=== PATIENT | female | born 1985 | race Hispanic/Latino ===

== ENCOUNTER 2019-08-01 18:01 | Emergency (ER) | payer MEDICAID ==
[2019-08-01 18:41] LABS: APPEARANCE,URINE Cloudy (CLEAR); BILIRUBIN,URINE Negative (NEGATIVE); COLOR,URINE Yellow (YELLOW); GLUCOSE, URINE (UA) Negative (NEGATIVE); KETONES,URINE Negative (NEGATIVE); LEUKOCYTE ESTERASE ,URINE Moderate (NEGATIVE); NITRATE,URINE Negative (NEGATIVE); OCCULT BLOOD,URINE Large (NEGATIVE); PH,URINE 8.5 (5.0-8.0); PROTEIN,URINE Trace mg/dL (NEGATIVE)
[2019-08-01 19:00] LABS: HCG,QUAL RESULT NEGATIVE (NEGATIVE)
[2019-08-01 19:35] LABS: AMORPHOUS SEDIMENT,UR Many /LPF (None Seen); BACTERIA,URINE Few /HPF (None Seen); MUCUS,URINE Moderate LPF (None Seen); SQUAMOUS EPITHELIAL CELL,UR Moderate /HPF (0-2)
[2019-08-01] MEDS ORDERED: CEFTRIAXONE SODIUM 500 MG VIAL ONE (20:36)
[2019-08-01] MEDS ORDERED: LIDOCAINE HCL-MPF 1% 2ML VIAL ONE (20:36)
[2019-08-01] MEDS ORDERED: AZITHROMYCIN 250 MG TABLET PO ONE (20:37)
== END 2019-08-01 21:20 | disposition home or self-care (01) ==
LOC: EDH 18:01
DX: N39.0 Urinary tract infection, site not specified (principal); Z98.890 Other specified postprocedural states
CPT/HCPCS: 76856; 81001; 81025; 87210; 87486; 87797; 96372; 99285; J0696; J3490

== ENCOUNTER 2022-08-30 15:06 | Emergency (ER) | payer MEDICAID ==
[~2022-08-30] VITALS: Ht 167.6 cm; Wt 59.0 kg
[2022-08-30 15:09] VITALS: BP 135/76
[2022-08-30] MEDS ORDERED: ACET-2079 PO (16:19)
[2022-08-30] MEDS ORDERED: ACETAMINOPHEN WITH CODEINE 1 TAB TAB PO ONE (16:30)
== END 2022-08-30 17:05 | disposition home or self-care (01) ==
LOC: EDH 15:06
DX: S42.251A Displaced fracture of greater tuberosity of right humerus, initial encounter for closed fracture (principal); Z90.710 Acquired absence of both cervix and uterus; Z98.890 Other specified postprocedural states; X58.XXXA Exposure to other specified factors, initial encounter; Y93.89 Activity, other specified; Y92.89 Other specified places as the place of occurrence of the external cause; Y99.8 Other external cause status
CPT/HCPCS: 29105; 73060; 99282

== ENCOUNTER 2022-10-31 14:39 | Emergency (ER) | payer MEDICAID ==
[~2022-10-31] VITALS: Ht 167.6 cm; Wt 59.0 kg
[~2022-10-31 14:39] MED LIST: ACET-2079 PO
[2022-10-31] MEDS ORDERED: LACTATED RINGERS 1000ML 1,000 ML IV ONE (15:00)
[2022-10-31 15:25] LABS: BASOPHILS % (AUTO) 0.6 % (0.0-5.0); EOSINOPHILS % (AUTO) 0.9 % (0.0-8.0); LYMPHOCYTES % (AUTO) 17.5 % (21.0-51.0); MEAN CORPUSCULAR HEMOGLOBIN 29.7 pg (27.0-33.0); MEAN CORPUSCULAR HGB CONC 33.8 g/dL (32.0-36.0); MEAN CORPUSCULAR VOLUME 87.9 fL (79-99); MONOCYTES % (AUTO) 10.8 % (3.0-13.0); NEUTROPHILS % (AUTO) 69.9 % (40.0-77.0); PLATELET COUNT (AUTO) 310 K/uL (130-400); RED BLOOD CELL COUNT(AUTO) 4.55 MIL/uL (4.00-5.50); RED CELL DISTRIBUTION WIDTH 13.5 % (11.0-15.5); WHITE BLOOD COUNT (AUTO) 6.8 K/uL (4.8-10.8)
[2022-10-31 15:36] LABS: CARBON DIOXIDE 26 mmol/L (21-32); CHLORIDE 102 mmol/L (101-111); CREATININE 0.8 mg/dL (0.5-1.5); GLOMERULAR FILTR. RATE CALC 96 mL/min (>90); GLUCOSE,RANDOM 94 mg/dL (70-105); POTASSIUM 3.4 mmol/L (3.5-5.1); SODIUM SERUM 136 mmol/L (136-145); UREA NITROGEN, BLOOD 19 mg/dL (7-18)
[2022-10-31 15:41] LABS: ALANINE AMINOTRANSFERASE 20 U/L (12-78); ALBUMIN 3.9 g/dL (3.5-5.0); ASPARTATE AMINOTRANSFERASE 12 U/L (10-37); CREATINE KINASE, TOTAL 63 U/L (21-232); PHENYTOIN (DILANTIN) < 0.5 mcg/mL (10.0-20.0); TOTAL PROTEIN, SERUM 7.1 g/dL (6.0-8.3); VALPROIC ACID < 3 mcg/mL (50-100)
[2022-10-31 15:54] VITALS: BP 125/105
[2022-10-31] MEDS ORDERED: LEVETIRACETAM 500 MG/5 ML SD VIAL IV SCH (16:30)
[2022-10-31 16:40] LABS: AMPHET/METH SCREEN,URINE NEGATIVE (NEGATIVE); BARBITURATE SCREEN, URINE NEGATIVE (NEGATIVE); BENZODIAZEPINES SCREEN,URINE NEGATIVE (NEGATIVE); CANNABINOID SCREEN,URINE POSITIVE (NEGATIVE); COCAINE SCREEN,URINE POSITIVE (NEGATIVE); OPIATE SCREEN,URINE NEGATIVE (NEGATIVE); PHENCYCLIDINE SCREEN,URINE NEGATIVE (NEGATIVE)
[2022-10-31] MEDS ORDERED: POTASSIUM BICARB/CIT AC 25 MEQ TABLET.EFF PO STA (17:04)
== END 2022-10-31 18:00 | disposition home or self-care (01) ==
LOC: EDH 14:39
DX: R56.9 Unspecified convulsions (principal); E87.6 Hypokalemia; F19.10 Other psychoactive substance abuse, uncomplicated
CPT/HCPCS: 99284; 96374; 96361; 80164; 82550; 80185; 80053; 80305; 85025; 36415; J7120; J1953

== ENCOUNTER 2023-05-26 20:12 | Emergency (ER) | payer MEDICAID ==
[~2023-05-26] VITALS: Ht 167.6 cm; Wt 57.6 kg
[2023-05-26 20:27] VITALS: BP 111/74; PULSE 78; RESP 18
== END 2023-05-26 21:04 | disposition home or self-care (01) ==
LOC: EDH 20:12
DX: I80.8 Phlebitis and thrombophlebitis of other sites (principal); I73.00 Raynaud's syndrome without gangrene; Z90.710 Acquired absence of both cervix and uterus; Z98.890 Other specified postprocedural states
CPT/HCPCS: 99282

== ENCOUNTER → 2023-12-16 | Outpatient (CLI) | payer MEDICAID | END | disposition home or self-care (01) | LOC: RAH 11:43 | PROVIDERS: ATTEND Family Medicine | DX: I34.0 Nonrheumatic mitral (valve) insufficiency (principal); R07.2 Precordial pain | CPT/HCPCS: 93306 ==

== ENCOUNTER 2024-09-07 21:26 | Emergency (ER) | payer MEDICAID ==
[~2024-09-07] VITALS: Ht 167.6 cm; Wt 89.8 kg
--- NOTE | 2024-09-07 21:42 | ERN ---
General Chief Complaint: Shoulder Injury/Pain Stated Complaint: RIGHT SIDE SHOULDER/NECK PAIN Time Seen by MD: 21:26 Source: patient History of Present Illness Initial Comments Patient is a 39-year-old female coming in with complaint of right trapezius muscle pain. She states that the pain has been ongoing for several months but she notices more when she is sitting up bright working on her computer. She states the pain is quantified at 10/10 and sometimes he feels warmth in that same site. No trauma reported. Allergies: Coded Allergies: No Known Drug Allergies (Unverified Allergy, Unknown, 08/01/19) Home Meds Active Scripts Acetaminophen with Codeine (Acetaminophen-Cod #3 Tablet) 1 Each Tablet, 1 TAB PO Q4H PRN for PAIN LEVEL 6 TO 10 for 3 Days, #18 TAB Prov:JULISSA MOTRON 08/30/22 Past Medical History Past Medical History: No Pertinent History Past Surgical History: Hysterectomy Surgical History Other: TUBAL LIGATION; HERNIA REPAIR Social History Social History: Negative ROS Dictation CONSTITUTIONAL: No chills, no fever, no weakness, no diaphoresis, no malaise. HEAD/FACE: No signs of trauma. EENT: No eye pain, no blurred vision, no tearing, no double vision, no ear pain, no ear discharge, no nose pain, no nasal congestion, no throat pain, no throat swelling, no mouth pain. RESPIRATORY: No cough, no orthopnea, no SOB, no stridor, no wheezing. CARDIOVASCULAR: No chest pain, no edema, no palpitations, no syncope. GASTROINTESTINAL/ABDOMINAL: No abdominal pain, no constipation, no diarrhea, no nausea, no vomiting. GENITOURINARY: No abnormal discharge, no dysuria, no frequent urination, no hematuria. No complaints of pain in the genitals. MUSCULOSKELETAL: back pain, no gout, no joint pain, no joint swelling, muscle pain, no muscle stiffness, no neck pain. INTEGUMENTARY: No change in color, no change in hair/nails, no dryness, no lesion, no lumps, no rash. NEUROLOGICAL/PSYCH: No anxiety, not depressed, no emotional problem, no headache, no numbness, no pre-existing deficit, no history of seizures, no tremors, no weakness. HEMATOLOGIC/LYMPHATIC: Not anemic, no history of blood clots, no apparent bleeding, no bruising, glands not swollen. All Systems Negative, Except as Noted. Physical Exam Physical Exam Dictation VITAL SIGNS: Reviewed. GENERAL APPEARANCE: Alert, oriented x3, no acute distress, obese. HEAD AND FACE: Non-traumatic. EYES: PERRL, pink conjunctivas, eyelid no trauma, anterior chamber clear. EARS: Pinnas intact and no signs of trauma or erythema. Ear canals clear and no discharge. TMs no erythema. NOSE: No discharge, no bleeding. OROPHARYNX: Mouth normal, teeth no caries, tongue pink. Pharynx clear, no erythema. Tonsils no exudates, no abscesses noted. Mucous membrane moist. NECK: Supple, non-tender, no thyromegaly, no masses, no JVD, no bruits. BREAST: Deferred. CHEST: No tenderness, no crepitus, no paradoxical movement, no retractions. LUNGS: Clear, well-ventilated, symmetric, no rales, no wheezing, no rhonchi, no stridor, good breath sounds bilaterally. HEART: Regular rate, regular rhythm, no murmur, no gallops. VASCULAR: No peripheral edema. ABDOMEN: Soft, positive bowel sounds, nondistended, no guarding, nontender, no rebound, no masses no hepatomegaly, no splenomegaly, no Hernandez's sign, no hernias. RECTAL: Deferred. GENITAL: Deferred. NEUROLOGICAL: Normal speech, gross motor function intact, gross sensory function intact. MUSCULOSKELETAL: Neck nontender, full range of motion, right trapezius muscle tender, full range of motion. EXTREMITIES: Nontender, full range of motion. SKIN: Color pink, dry, no turgor, no rash, no lacerations, no abrasions, no contusions. LYMPHATICS: Deferred. Results Laboratory and Microbiology Lab and Micro Result Laboratory Tests Test 09/08/24 01:18 Urine HCG, Qualitative NEGATIVE (NEGATIVE) Labs Reviewed?: Yes EKG/XRAY/US/CT/MRI EKG Comment 09/07/2024 time 221:53 Ventricular rate [address] wave elevation or depression MDM MDM: Differential diagnosis: Subscapularis muscle strain, trapezius muscle strain, tension headache Patient is a 39-year-old female coming in to be evaluated for right trapezius muscle tenderness. On physical exam right subscapularis muscle tenderness on palpation. Right shoulder sling was placed. Patient will be discharged in stable condition with a diagnosis of right shoulder strain. I advised her appropriate follow up with PCP in 1-2 days. Also advised her sling usage until pain has resolved. ED Course Orders Procedure Category Date Status Time ,Urine Test LAB 09/07/24 Complete 21:34 Orphenadrine Citrate PHA 09/07/24 Complete (Norflex) 22:00 Ketorolac PHA 09/08/24 Complete Tromethamine 30mg/Ml 02:00 Sling PRACHI 09/08/24 In Process 01:59 Current Medications Medications (Trade) Dose Ordered Sig/Malika Route PRN Reason Start Time Stop Time Status Last Admin Dose Admin Ketorolac Tromethamine (toRADol) 30 mg ONCE ONCE IM 09/08/24 02:00 09/08/24 02:01 DC Orphenadrine Citrate (Norflex) 60 mg ONCE ONCE IM 09/07/24 22:00 09/07/24 22:01 DC 09/08/24 01:33 Vital Signs Date Time Temp Pulse Resp B/P (MAP) Pulse Ox O2 Delivery O2 Flow Rate FiO2 09/08/24 01:38 98.6 75 18 125/65 99 Room Air* 0 21 09/07/24 21:33 97.5 78 20 113/86 98 Room Air DX & DISP Disposition: Discharge Departure Impression: Primary Impression: Right subscapular pain Condition: Stable Scripts Diclofenac Sodium (Voltaren Arthritis Pain) 1 % Gel..gram. 4 GM TP BID for 7 Days, #1 TUBE Prov: ARMANDO JACINTO MD 09/08/24 Additional Instructions: FOLLOW-UP WITH PRIMARY CARE PROVIDER IN 1 TO 2 DAYS. TAKE MEDICATIONS DIRECTED HERE IN THE EMERGENCY ROOM. OKAY TO CONTINUE HOME MEDICATIONS UNLESS OTHERWISE DISCUSSED DURING YOUR VISIT IN THE EMERGENCY ROOM TODAY. RETURN TO YOUR NEAREST EMERGENCY ROOM IF SYMPTOMS WORSEN OR IF THERE IS NO IMPROVEMENT. CALL 911 IF YOU NEED IMMEDIATE ASSISTANCE. TAKE TYLENOL [id number] NEEDED AND IF NO CONTRAINDICATIONS ARE PRESENT. INCREASE ORAL HYDRATION. A WOUND CULTURE OR URINE CULTURE WAS ORDERED HERE IN THE EMERGENCY ROOM DEPARTMENT PLEASE FOLLOW-UP WITH PRIMARY CARE PROVIDER AND ADVISE THEM TO GET REPEAT PORTS FROM OUR FACILITY. IF YOU HAD ANY LINO WRAP/SPLINTS THAT WERE APPLIED HERE, PLEASE DO NOT REMOVE THEM UNTIL YOU SEE YOUR PRIMARY CARE OR SPECIALTY. Referrals: Referrals: HUDSON CHAPIN MD (PCP) Time of Disposition: 02:06 ARMANDO JACINTO MD Sep 07, 2024 21:42
[2024-09-08] MEDS: ORPHENADRINE 60MG/2ML IM ONE (01:33)
--- NOTE | 2024-09-08 01:33 | NUR ---
ASSUMED PT CARE
[2024-09-08 01:38] VITALS: BP 125/65; PULSE 75; RESP 18; TEMP 98.6; O2SAT 99
[2024-09-08] MEDS ORDERED: DICL20GE TP (02:06)
[2024-09-08] MEDS: ketOROlac 30MG VIAL (30MG/ML) IM ONE (02:10)
--- NOTE | 2024-09-08 09:42 | EKG ---
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
== END 2024-09-08 02:22 | disposition home or self-care (01) ==
LOC: EDH 21:26
DX: M25.511 Pain in right shoulder (principal); Z90.710 Acquired absence of both cervix and uterus; Z98.890 Other specified postprocedural states; X58.XXXA Exposure to other specified factors, initial encounter; Y93.89 Activity, other specified; Y92.89 Other specified places as the place of occurrence of the external cause; Y99.8 Other external cause status
CPT/HCPCS: 99284; 81025; 93005; 96372 ×2; J1885; J2360

== ENCOUNTER 2025-01-02 17:32 | Inpatient (IN) | payer SELFPAY ==
[~2025-01-02] VITALS: Ht 167.6 cm; Wt 93.0 kg
[~2025-01-02 17:32] MED LIST changes: -ACET-2079 PO; +ALBU2.5V2 IH; +ALBU2.5V2 NEB; +BENZ-226 PO; +CEFD300C3 PO; +DOXY100T2 PO; +GABA300C PO; +MIRT-93 PO; +NEBU-305 MC; +OSEL75 PO
[2025-01-02 17:58] VITALS: PULSE 98; RESP 22
[2025-01-02] MEDS: IpraTROPium 0.5 MG/2.5 ML INH IH ONE ×2 (17:58→18:00)
[2025-01-02] MEDS: SODIUM CHLORIDE 3% FOR INHALATION 4 ML/AMP VIAL.NEB IH ONE (17:58)
[2025-01-02 17:59] LABS: BASOPHILS # (AUTO) 0.04 K/uL (0.00-0.20); BASOPHILS % (AUTO) 0.6 % (0.0-5.0); EOSINOPHILS # (AUTO) 0.22 K/uL (0.00-0.70); EOSINOPHILS % (AUTO) 3.4 % (0.0-8.0); HEMATOCRIT 41.6 % (36-48); IMMATURE GRANULOCYTE ABSOLUTE 0.01 K/uL (0-1); LYMPHOCYTES # (AUTO) 1.6 K/uL (1.0-4.8); LYMPHOCYTES % (AUTO) 24.8 % (21.0-51.0); MEAN CORPUSCULAR HEMOGLOBIN 29.5 pg (27.0-33.0); MEAN CORPUSCULAR HGB CONC 34.1 g/dL (32.0-36.0); MEAN CORPUSCULAR VOLUME 86.3 fL (79-99); MONOCYTES % (AUTO) 15.1 % (3.0-13.0); NEUTROPHILS # (AUTO) 3.6 K/uL (1.8-7.7); NEUTROPHILS % (AUTO) 55.9 % (40.0-77.0); PLATELET COUNT (AUTO) 289 K/uL (130-400); RED BLOOD CELL COUNT(AUTO) 4.82 MIL/uL (4.00-5.50); RED CELL DISTRIBUTION WIDTH 13.2 % (11.0-15.5); WHITE BLOOD COUNT (AUTO) 6.5 K/uL (4.8-10.8)
[2025-01-02] MEDS: SODIUM CHLORIDE FOR INHALATION 3 ML VIAL.NEB. IH ONE (18:01)
[2025-01-02] MEDS: Solu-medROL 125MG VIAL IVP ONE (18:03)
[2025-01-02 18:17] LABS: CARBON DIOXIDE 22 mmol/L (21-32); CHLORIDE 108 mmol/L (101-111); CREATININE 0.9 mg/dL (0.5-1.0); GLOMERULAR FILTR. RATE CALC 82 mL/min (>90); GLUCOSE,RANDOM 96 mg/dL (70-105); SODIUM SERUM 143 mmol/L (136-145); UREA NITROGEN, BLOOD 16 mg/dL (7-18)
[2025-01-02 18:19] LABS: B-TYPE NATRIURETIC PEPTIDE 8 pg/mL (0-100)
[2025-01-02 18:22] LABS: ALANINE AMINOTRANSFERASE 18 U/L (12-78); ALBUMIN 3.6 g/dL (3.5-5.0); ASPARTATE AMINOTRANSFERASE 22 U/L (10-37); BILIRUBIN,DIRECT < 0.1 mg/dL (0.0-0.3); BILIRUBIN,TOTAL 0.3 mg/dL (0.2-1.0); TOTAL PROTEIN, SERUM 7.6 g/dL (6.0-8.3)
--- NOTE | 2025-01-02 18:49 | ERN ---
ED Note History of Present Illness Stated Complaint: SOB Chief Complaint: Shortness of Breath Time Seen by MD: 17:47 Dictation: 39-year-old female history of lung disease presenting to the emergency department with wheezing and shortness a breath reports similar episodes in the past required admission, had trouble breathing feel like her throat was in a closed gives history of bronchospasms with COPD Allergies: Coded Allergies: No Known Drug Allergies (Unverified Allergy, Unknown, 08/01/19) Home Meds Active Scripts Nebulizer (Nebulizer) 1 Each Each, EACH MC, #1 Prov:DONNY PRICE AGPCNP 11/03/24 Albuterol Sulfate (Albuterol Sulfate) 2.5 Mg/3 Ml (0.083 %) Vial.neb, 2.5 MG IH Q6HPRN PRN for SHORTNESS OF BREATH/WHEEZING, #1 INH Prov:DONNY PRICE AGPCNP 11/03/24 Albuterol Sulfate (Albuterol Sulfate) 2.5 Mg/3 Ml (0.083 %) Vial.neb, 1 VIAL NEB O2BREQS PRN for wheezing, #150 ML 0 Refills Prov:DONNY PRICE AGPCNP 11/03/24 Doxycycline Hyclate (Doxycycline Hyclate) 100 Mg Tablet, 100 MG PO BID, #14 TAB 0 Refills Prov:DONNY PRICEPCNP 11/03/24 Benzonatate (Benzonatate) 100 Mg Capsule, 200 MG PO Q8H PRN for cough, #30 CAP 0 Refills Prov:DONNY PRICEPCNP 11/03/24 Cefdinir (Cefdinir) 300 Mg Capsule, 1 CAP PO BID for 7 Days, #14 CAP 0 Refills Prov:DONNY PRICEPCNP 11/03/24 Oseltamivir Phosphate (Tamiflu) 75 Mg Cap, 75 MG PO BID, #2 CAP 0 Refills Prov:DONNY PRICEPCNP 11/03/24 Reported Medications Mirtazapine (Mirtazapine) 30 Mg Tablet, 1 TAB PO HS for 30 Days, #30 TAB 0 Refills 10/30/24 Gabapentin (Neurontin) 300 Mg Capsule, 1 CAP PO BID for 30 Days, #90 CAP 0 Refills 10/30/24 Past Medical History Past Medical History: COPD Surgical History: None Surgical History Other: TUBAL LIGATION; HERNIA REPAIR Social History: Negative : 7 Para: 5 Aborts: 2 Review of System Dictation Constitutional: Negative for fever,chills, and weight loss Eyes: Negative for injury, pain,redness, and discharge ENT: Negative for injury,pain or swelling Cardiovascular: Negative for chest pain, palpitations, and edema Respiratory: Per HPI Abdomen/GI: Negative for abdominal pain, nausea, vomiting, diarrhea, and constipation Back: Negative for injury and pain : Negative for injury, bleeding and discharge MS/Extremity: Negative for injury and deformity Skin: Negative for rash, and discoloration Neuro: Negative for headache, weakness, numbness, tingling, and seizure Psych: Negative for suicide ideation, homicidal ideation, and hallucinations Initial Vital Sign VS Vital Signs Date Time Temp Pulse Resp B/P (MAP) Pulse Ox O2 Delivery O2 Flow Rate FiO2 01/02/25 17:45 98.2 104 24 139/89 96 Room Air 0 Physical Exam Dictation General: awake, alert, appears anxious Head/Face: Normocephalic, atraumatic Eyes: PERRL, EOMI, vision at baseline ENT: oral cavity clear, TMs clear, no signs of infection Neck: Trachea midline, supple, no nuchal rigidity Cardiovascular: RRR, normal S1/S2, No MRGs, no JVD Respiratory: Mild tachypnea with diffuse wheezing Abdomen: Soft, non-tender, non-distended, normal bowel sounds, no guarding or rebound. Skin: Warm, dry, normal turgor, no rash MS/Extremity: Pulses equal, no cyanosis, neurovascular intact, FROM Neuro: COAx4, GCS 15, strength 5/5, CN 2-12 intact, normal cerebellar exam, normal gait, Psych: Normal behavior, mood, and affect normal Results (Laboratory/Radiology) Laboratory/Radiology Laboratory Tests Test 01/02/25 17:52 White Blood Count 6.5 K/uL (4.8-10.8) Red Blood Count 4.82 MIL/uL (4.00-5.50) Hemoglobin 14.2 g/dL (12.0-16.0) Hematocrit 41.6 % (36-48) Mean Corpuscular Volume 86.3 fL (79-99) Mean Corpuscular Hemoglobin 29.5 pg (27.0-33.0) Mean Corpuscular Hemoglobin Concent 34.1 g/dL (32.0-36.0) Red Cell Distribution Width 13.2 % (11.0-15.5) Platelet Count 289 K/uL (130-400) Mean Platelet Volume 9.5 fL (7.5-10.5) Immature Granulocyte % (Auto) 0.2 % (0-1) Neutrophils (%) (Auto) 55.9 % (40.0-77.0) Lymphocytes (%) (Auto) 24.8 % (21.0-51.0) Monocytes (%) (Auto) 15.1 % (3.0-13.0) H Eosinophils (%) (Auto) 3.4 % (0.0-8.0) Basophils (%) (Auto) 0.6 % (0.0-5.0) Neutrophils # (Auto) 3.6 K/uL (1.8-7.7) Lymphocytes # (Auto) 1.6 K/uL (1.0-4.8) Monocytes # (Auto) 1.0 K/uL (0.1-1.0) Eosinophils # (Auto) 0.22 K/uL (0.00-0.70) Basophils # (Auto) 0.04 K/uL (0.00-0.20) Absolute Immature Granulocyte (auto 0.01 K/uL (0-1) Nucleated Red Blood Cells 0.0 % (0.0-0.19) White Cell Morphology Comment See comments Sodium Level 143 mmol/L (136-145) Potassium Level 4.0 mmol/L (3.5-5.1) Chloride Level 108 mmol/L (101-111) Carbon Dioxide Level 22 mmol/L (21-32) Blood Urea Nitrogen 16 mg/dL (7-18) Creatinine 0.9 mg/dL (0.5-1.0) Glomerular Filtration Rate Calc 82 mL/min (>90) Random Glucose 96 mg/dL (70-105) Lactic Acid Level 1.7 mmol/L (0.8-2.5) Total Calcium 8.6 mg/dL (8.5-10.1) Total Bilirubin 0.3 mg/dL (0.2-1.0) Direct Bilirubin < 0.1 mg/dL (0.0-0.3) Aspartate Amino Transf (AST/SGOT) 22 U/L (10-37) Alanine Aminotransferase (ALT/SGPT) 18 U/L (12-78) Alkaline Phosphatase 124 U/L (50-136) B-Type Natriuretic Peptide 8 pg/mL (0-100) Total Protein 7.6 g/dL (6.0-8.3) Albumin 3.6 g/dL (3.5-5.0) EKG Comment: Normal sinus rhythm rate is 87 normal intervals no STEMI or STEMI equivalent ED Course ED Course Orders Procedure Category Date Status Time Ipratropium 0.5 PHA 01/02/25 Complete Mg/2.5 Ml Inh 18:00 Sodium Chloride For PHA 01/02/25 Complete Inhalation (Sodium C 18:00 Methylprednisolone PHA 01/02/25 Complete Succ 125mg (Solu-Medr 18:00 12 Lead Ekg Tracing- EKG 01/02/25 Logged Technical 17:49 B-Type Natriuretic LAB 01/02/25 Complete Peptide 17:49 Basic Metabolic Panel LAB 01/02/25 Complete 17:49 Cbc With Differential LAB 01/02/25 Complete 17:49 Blood Cult MEGAN 01/02/25 Logged 17:49 Hepatic Function Panel LAB 01/02/25 Complete 17:49 Lactic Acid LAB 01/02/25 Complete 17:49 Troponin I High LAB 01/02/25 In Process Sensitivity 17:49 Chest 1vw RAD 01/02/25 Taken 17:49 Sodium Chloride 3% PHA 01/02/25 Complete Inh (Sodium Chloride 17:51 Ipratropium 0.5 PHA 01/02/25 Complete Mg/2.5 Ml Inh 17:51 Covid19 (Sars Antigen LAB 01/02/25 In Process Rapid) 17:52 Influenza Type A & B, LAB 01/02/25 In Process Rapid 17:52 Current Medications Medications (Trade) Dose Ordered Sig/Malika Route PRN Reason Start Time Stop Time Status Last Admin Dose Admin Ipratropium [place] (AtrovENT UD) 0.5 mg ONCE ONCE IH 01/02/25 18:00 01/02/25 18:01 DC Ipratropium [place] (AtrovENT UD) 0.5 mg STK-MED ONCE IH 01/02/25 17:51 01/02/25 17:52 DC 01/02/25 17:58 Methylprednisolone Sodium Succinate (Solu-medROL 125MG) 125 mg ONCE ONCE IVP 01/02/25 18:00 01/02/25 18:01 DC 01/02/25 18:03 Sodium Chloride (Sodium Chloride 3% Inh) 4 ml STK-MED ONCE IH 01/02/25 17:51 01/02/25 17:52 DC 01/02/25 17:58 Sodium Chloride (Sodium Chloride) 3 ml ONCE ONCE IH 01/02/25 18:00 01/02/25 18:01 DC Vital Signs Date Time Temp Pulse Resp B/P (MAP) Pulse Ox O2 Delivery O2 Flow Rate FiO2 01/02/25 17:58 98 22 01/02/25 17:45 98.2 104 24 139/89 96 Room Air 0 Medical Decision Making MDM MDM: Differential diagnosis: Rationale: Tests considered and ordered secondary to shared decision making include: labs, ECG and radiology Previous outside records reviewed: Old ER visits. Risk of complication and/or morbidity or mortality of patient management: None Medications-Per medication reconciliation Need for hospitalization: Patient does meet criteria for hospitalization. Need for emergency major/minor surgery: No There are no social concerns with this patient. Prescription drug management Prescriptions will include symptomatic care Patient's prior external medical records from other ER visits were reviewed by me as indicated. Prior testing and results from previous visits were reviewed. Prior tests were taken into account with medical decision making and resource utilization, independent historian/historians were used to obtain complete medical history. I independently interpreted the test that were performed, results were reviewed by me and considered findings on radiology if ordered. Medical management and examination interpretation discussions were had by me with other qualified healthcare professionals as indicated for the patient's care. 39-year-old female with acute reactive airway disease, wheezing, improved with nebs admitting for further care and evaluation. Critical Care Note Comment(s) Total critical care time was 33 minutes. Excluding time for procedures. Management of critically ill patient with concern for acute decompensation. Management included interpretation of laboratory values and imaging, hemodynamics, time for consultation with consultants and admitting physician. DX & DISP Disposition: Inpatient Departure Impression: Primary Impression: Respiratory distress Additional Impression: Reactive airway disease with acute exacerbation Condition: Stable Referrals: HUDSON CHAPIN MD (PCP) DOUG EDGE MD January 02, 2025 18:49
--- NOTE | 2025-01-02 19:02 | HMCIMG ---
Exam Type: CHEST 1VW Clinical Information: sob Comparison: None Findings: The lungs are clear of infiltrates. The heart is normal in size. The bony and soft tissue structures of the chest are unremarkable. Impression: Clear lungs.
[2025-01-02 19:08] LABS: COVID19 (SARS ANTIGEN RAPID) PRESUMPTIVE NEGATIVE (NEGATIVE); INFLUENZA TYPE A Negative For Type A (NEGATIVE); INFLUENZA TYPE B Negative For Type B (NEGATIVE)
--- NOTE | 2025-01-02 19:28 | EKG ---
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
--- NOTE | 2025-01-02 19:46 | HP ---
[facility] HISTORY AND PHYSICAL Date of Service: January 02, 2025 Time of Service: 19:46 PCP: Alexy Llanos HISTORY OF PRESENT ILLNESS: This is a 39-year-old with past medical history of anxiety disorder PTSD and Chronic obstructive pulmonary disease who presents to the ED for complaints of persistent cough with shortness of breath associated with subjective fever ,chills and tiredness.Patient reports she started having cough last Friday and becoming worse that she is unable to sleep at night and her coughing episode tr iggers shortness of breath and she started feeling tired and fatigued last Friday and today she started having subjective fever and chills and started having upper abdominal soreness due to her persistent coughing episode she said.Patient reports her primary doctor did a test and she was told she has COPD and patient reports she used to smoke and use recreational drugs but quits last February 2023.Patient reports amanda was admitted here in this facility last October and was discharged home and she was doing fine at home until last Friday.Patient denies sick contact,recent travel was to 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 Seen and examined patient in the ER on Oxygen supplementation,awake,alert and coherent,appears short of breath with persistent cough.Patient reports having productive thick white phlegm. Patient denies chest pain, palpitation, nausea, vomiting, sore throat and diarrhea Vital signs temperature 98.2, heart rate 74, blood pressure 114/73 saturation 97% on 2 L nasal cannula. Labs: Monocytes 15 the rest of the CBC is normal. Chemistries normal. Influenza type a and B negative COVID negative. Chest x-ray result is normal. While in the ER patient received DuoNeb treatment, Solu-Medrol 125 mg IV. We will admit patient for further medical management. REVIEW OF SYSTEMS CONSTITUTIONAL: Complains of fever and chills Denies night sweats. No unintentional weight loss reported. NEUROLOGICAL: Complaints of generalized weakness and fatigue Denies headache, amaurosis fugax, , sensory deficit, vertigo/spinning sensation, gait abno rmalities, or tremors. ENT: No hearing loss, otalgia, otorrhea, rhinitis, rhinorrhea, hoarseness, or s ore throat. CARDIOVASCULAR: Denies any exertional angina, dyspnea on exertion, orthopnea, paroxysmal nocturnal dyspnea, palpitations, life-threatening arrhythmias, claudication. PULMONARY: Complaints of shortness of breaths with cough Denies hemoptysis, pleuritic chest pain. SLEEP: Complains of unable to sleep due to persistent cough Denies morning headaches, daytime somnolence or napping. Denies waking from sleep. Denies kn owledge of snoring. GASTROINTESTINAL: Denies any type of dysphagia to either liquids or solids. Denies nausea, vomiting, pyrosis, early satiety, abdominal pain, diarrhea, constipation, or changes in stool consistency or caliber. Denies coffee-ground emesis, hematemesis, hematochezia, or melanotic stools. GENITOURINARY: Denies frequency, urgency, nocturia, hematuria or incontinence (Storage/Irritative symptoms.) Low urinary stream, straining to void, urinary intermittency or hesitancy, splitting of the voiding stream, terminal dribbling. ENDOCRINOLOGIC: Denies polyuria, polydipsia, polyphagia or heat/cold intolerances. HEMATOLOGIC: Denies thrombophilia/previous clots, or coagulopathy/bleeding disorders. ONCOLOGIC: Denies personal history of malignancy. DERMATOLOGIC: Denies rashes or pruritus. PSYCHIATRIC: Denies any suicidal or homicidal ideation. Denies hallucinations. PAST MEDICAL HISTORY: [Chronic obstructive pulmonary disease, anxiety disorder and PTSD ] PAST SURGICAL HISTORY: [Hysterectomy, tubal ligation and hernia repair ] PAST SOCIAL HISTORY: [ Patient lives with family. Patient denies cigarette smoking, alcohol and recreational drug use. Patient states she used to smoke and do drugs but quit February 2023 ] FAMILY HISTORY: [Thyroid cancer, throat cancer , melanoma, hyperlipidemia and coronary artery disease. ] Coded Allergies: No Known Drug Allergies (Unverified Allergy, Unknown, 08/01/19) PHYSICAL EXAM GENERAL APPEARANCE: The patient is awake, alert, and oriented. NEUROLOGICAL: Cranial nerves II-XII grossly intact. Motor is 5/5 in bilateral upper and lower extremities proximal to distal. No sensory deficits. HEENT: Face is symmetric. Pupils are equal and reactive. Extraocular movements are intact. NECK: Supple. No JVD. No thyromegaly. No submental, submandibular, pre- /postauricular, occipital or supraclavicular lymphadenopathy. CHEST: Normal chest expansion. No Telemetry. LUNGS: Scattered rhonchi on bilateral lung kinney per auscultation Absence of any rales and any wheezing. CARDIOVASCULAR: Regular. S1 and S2 normal. No appreciable rubs, murmurs or gallops. ABDOMEN: Soft, nontender, and nondistended. There is no rebound, voluntary guarding, or rigidity. : Deferred. No Pacheco. EXTREMITIES: Non-edematous and not cyanotic. No clubbing. Good capillary refill. SKIN: No skin breakdown. Vital Sign (Last 24 Hours) 01/02/25 01/02/25 17:45 18:44 Temp 98.2 Pulse 74 Resp 18 B/P (MAP) 114/73 Pulse Ox 97 O2 Delivery Nasal Cannula* O2 Flow Rate 2 FiO2 28 LABS: Laboratory: Test 01/02/25 18:10 01/02/25 17:52 Range/Units Influenza Type A Antigen Negative For Type A NEGATIVE Influenza Type B Antigen Negative For Type B NEGATIVE SARS-CoV-2 Antigen (Rapid) PRESUMPTIVE NEGATIVE NEGATIVE White Blood Count 6.5 4.8-10.8 K/uL Red Blood Count 4.82 4.00-5.50 MIL/uL Hemoglobin 14.2 12.0-16.0 g/dL Hematocrit 41.6 36-48 % Mean Corpuscular Volume 86.3 79-99 fL Mean Corpuscular Hemoglobin 29.5 27.0-33.0 pg Mean Corpuscular Hemoglobin Concent 34.1 32.0-36.0 g/dL Red Cell Distribution Width 13.2 11.0-15.5 % Platelet Count 289 130-400 K/uL Mean Platelet Volume 9.5 7.5-10.5 fL Immature Granulocyte % (Auto) 0.2 0-1 % Neutrophils (%) (Auto) 55.9 40.0-77.0 % Lymphocytes (%) (Auto) 24.8 21.0-51.0 % Monocytes (%) (Auto) 15.1 H 3.0-13.0 % Eosinophils (%) (Auto) 3.4 0.0-8.0 % Basophils (%) (Auto) 0.6 0.0-5.0 % Neutrophils # (Auto) 3.6 1.8-7.7 K/uL Lymphocytes # (Auto) 1.6 1.0-4.8 K/uL Monocytes # (Auto) 1.0 0.1-1.0 K/uL Eosinophils # (Auto) 0.22 0.00-0.70 K/uL Basophils # (Auto) 0.04 0.00-0.20 K/uL Absolute Immature Granulocyte (auto 0.01 0-1 K/uL Nucleated Red Blood Cells 0.0 0.0-0.19 % White Cell Morphology Comment See comments Sodium Level 143 136-145 mmol/L Potassium Level 4.0 3.5-5.1 mmol/L Chloride Level 108 101-111 mmol/L Carbon Dioxide Level 22 21-32 mmol/L Blood Urea Nitrogen 16 7-18 mg/dL Creatinine 0.9 0.5-1.0 mg/dL Glomerular Filtration Rate Calc 82 >90 mL/min Random Glucose 96 70-105 mg/dL Lactic Acid Level 1.7 0.8-2.5 mmol/L Total Calcium 8.6 8.5-10.1 mg/dL Total Bilirubin 0.3 0.2-1.0 mg/dL Direct Bilirubin < 0.1 0.0-0.3 mg/dL Aspartate Amino Transf (AST/SGOT) 22 10-37 U/L Alanine Aminotransferase (ALT/SGPT) 18 12-78 U/L Alkaline Phosphatase 124 50-136 U/L Troponin I High Sensitivity < 4 L 4-50 ng/L B-Type Natriuretic Peptide 8 0-100 pg/mL Total Protein 7.6 6.0-8.3 g/dL Albumin 3.6 3.5-5.0 g/dL DIAGNOSTICS / RADIOLOGY: [ ] ASSESSMENT: Acute cough with shortness of breaths POA Chronic obstructive pulmonary disease exacerbation POA Reactive airway disease with acute exacerbation POA PLAN: We will admit patient in medical telemetry We will start on clear liquid diet advanced as tolerated Guaifenesin with codeine 10 mL p.o. x1 dose now We will start patient on Levaquin 500 mg IV daily for empiric coverage We will start patient on Solu-Medrol 40 mg IV b.i.d. We will start on Famotidine 20 mg IV bid for GI prophylaxis We will replace electrolytes as needed per protocol Continue oxygen supplementation to keep saturation above 92% DuoNeb treatment q.4 hours for shortness of breaths and cough We will obtain respiratory culture We will add prn medication for fever,pain,cough , nausea and vomiting We will reconcile home meds once medlist available We will seek pulmonology consultation We will request labs in am Further orders to follow depending on above results Case discussed with attending physician and came up with above treatment and plan of care. ADVANCED CARE PLANNING 1. Which of the following were discussed? Hospice Care - No Therapeutic options - Yes Advance Directives - No Other discussions - 2. Discussed with who? Patient 3. Voluntary nature of this service was explained to the patient? Yes 4. Amount of time spent - _22_min____ 5. Reviewed by Physician? (if this service was performed by NPP) Yes Patient seen and examined by me. Agree with note by BUTTON RIVETER SEE ADDITIONAL ORDERS PER CHART DISCUSSED WITH NURSING STAFF CHAPITO GRIDER NEWSPAPER EDITOR January 02, 2025 19:46
--- NOTE | 2025-01-02 20:00 | NUR ---
CHEO PLY SPLICER AT BEDSIDE
[2025-01-02] MEDS ORDERED: ondanSETRON 4MG INJ IV PRN (20:30)
[2025-01-02] MEDS ORDERED: acetaMINOPHEN 325 MG TAB PO PRN (20:30)
[2025-01-02] MEDS: FAMOTIDINE 20MG VIAL IV SCH (20:33)
[2025-01-02] MEDS: guaiFENesin-coDEINE 5 ML SYRUP PO ONE (20:33)
[2025-01-02] MEDS: levoFLOXacin 500 MG/D5W 100 ML 100 ML IV SCH (20:33)
[2025-01-02] MEDS: Solu-medROL 40MG VIAL IVP SCH (20:33)
--- NOTE | 2025-01-02 20:58 | NUR ---
REPORT GIVEN TO WENDY CASTAÑEDA
--- NOTE | 2025-01-02 21:07 | NUR ---
BRANDI PENA MADE AWARE OF PULMONOLOGY CONSULT
[2025-01-02 21:33] VITALS: BP 123/85; PULSE 91; RESP 20; TEMP 97.6
[2025-01-02] MEDS: acetaMINOPHEN 325 MG TAB PO PRN (21:55)
--- NOTE | 2025-01-02 22:24 | NUR ---
HOME MEDICATIONS PATIENT STATED DOES NOT HAVE HOME MEDICATIONS WITH HER BUT WILL BRING MEDICATIONS LATER. AT BEDSIDE AND STATED WILL BRING HOME MEDICATIONS LATER.
[2025-01-02 22:58] VITALS: PULSE 99; RESP 21
[2025-01-02] MEDS: IpraTROPium/alBUTERol SULFATE 3 ML SOLUTION IH SCH (22:58)
[2025-01-02 23:15] LABS: ABG BASE EXCESS -5.9 mmol/L (-2.0-3.0); ABG HCO3 18.6 mmol/L (21.0-28.0); ABG OXYGEN SATURATION 97.4 % (94.0-98.0); ABG PCO2 34 mmHg (32-45); ABG PH 7.358 (7.350-7.450); CARBON MONOXIDE 0.3 % (0.5-1.5); DEVICE COMMENT JAYME NURSE; HHb 2.6; PO2, ARTERIAL BG 100.6 mmHg (83.0-108.0); VENT MODE, BG RR 2LNC (ROOM AIR)
[2025-01-02] MEDS: guaiFENesin-DM 200/20MG 10ML PO PRN (23:47)
[2025-01-02] MEDS ORDERED: GABA300C PO (23:49)
[2025-01-02] MEDS ORDERED: MIRT-93 PO (23:49)
[2025-01-03] VITALS (15 sets, daily range): BP systolic 108–143; BP diastolic 58–91; PULSE 72–103; RESP 18–21; TEMP 97.9–98.4; O2SAT 96
[2025-01-03] MEDS: BENZONATATE 100 MG CAPSULE PO PRN (02:16)
[2025-01-03 04:53] LABS: BASOPHILS # (AUTO) 0.01 K/uL (0.00-0.20); BASOPHILS % (AUTO) 0.2 % (0.0-5.0); HEMATOCRIT 39.9 % (36-48); IMMATURE GRANULOCYTE ABSOLUTE 0.02 K/uL (0-1); LYMPHOCYTES # (AUTO) 0.6 K/uL (1.0-4.8); MEAN CORPUSCULAR HEMOGLOBIN 29.3 pg (27.0-33.0); MEAN CORPUSCULAR HGB CONC 34.1 g/dL (32.0-36.0); MONOCYTES # (AUTO) 0.1 K/uL (0.1-1.0); MONOCYTES % (AUTO) 1.6 % (3.0-13.0); NEUTROPHILS # (AUTO) 5.5 K/uL (1.8-7.7); NEUTROPHILS % (AUTO) 87.9 % (40.0-77.0); PLATELET COUNT (AUTO) 254 K/uL (130-400); RED BLOOD CELL COUNT(AUTO) 4.64 MIL/uL (4.00-5.50); WHITE BLOOD COUNT (AUTO) 6.2 K/uL (4.8-10.8)
[2025-01-03 05:12] LABS: ALBUMIN 3.4 g/dL (3.5-5.0); BILIRUBIN,TOTAL 0.2 mg/dL (0.2-1.0); CREATININE 0.7 mg/dL (0.5-1.0); MAGNESIUM 1.9 mg/dL (1.80-2.40); TOTAL PROTEIN, SERUM 7.4 g/dL (6.0-8.3)
[2025-01-03] MEDS: GABAPENTIN 300 MG CAPSULE PO SCH (09:43)
--- NOTE | 2025-01-03 10:07 | NUR ---
DCP: HOME Pt states that she currently lives at home with her and small child. Pt receives $883 in SNAP benefits. Pt does not have any DME, home health, or provider services. Pt is able to complete ADLs independently. PCP is Dr. Viet Tracey and uses [facility] on [address] for any RX needs. At [place] pt will return home and family will assist with transportation. Addendum: 01/03/25 at 1012 by SILVER CALDERON SS Amended: Links added.
[2025-01-03] MEDS: IpraTROPium/alBUTERol SULFATE 3 ML SOLUTION IH SCH (12:00)
--- NOTE | 2025-01-03 12:32 | PN ---
[facility] PROGRESS NOTE Date of Service: January 03, 2025 Time of Service: 12:32 SUBJECTIVE: HPI This is a 39-year-old with past medical history of anxiety disorder PTSD and Chronic obstructive pulmonary disease who presents to the ED for complaints of persistent cough with shortness of breath associated with subjective fever ,chills and tiredness.Patient reports she started having cough last Friday and becoming worse that she is unable to sleep at night and her coughing episode triggers shortness of breath and she started feeling tired and fatigued last Friday and today she started having subjective fever and chills and started having upper abdominal soreness due to her persistent coughing episode she said.Patient reports her primary doctor did a test and she was told she has COPD and patient reports she used to smoke and use recreational drugs but quits last February 2023.Patient reports amanda was admitted here in this facility last October and was discharged home and she was doing fine at home until last Friday.Patient d enies sick contact,recent travel was to [facility] [place] and 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 Seen and examined patient in the ER on Oxygen supplementation,awake,alert and coherent,appears short of breath with persistent cough.Patient reports having productive thick white phlegm. Patient denies chest pain, palpitation, nausea, vomiting, sore throat and diarrhea Vital signs temperature 98.2, heart rate 74, blood pressure 114/73 saturation 97% on 2 L nasal cannula. Labs: Monocytes 15 the rest of the CBC is normal. Chemistries normal. Influenza type a and B negative COVID negative. Chest x-ray result is normal. While in the ER patient received DuoNeb treatment, Solu-Medrol 125 mg IV. 01/03/2025: Lying in bed at the time of evaluation. Alert and oriented and in mild distress. Continues with coughing. States the the cough is productive of whitish sputum, however she finds it very difficult to expectorate. Albuterol/ipratropium neb treatment, Budesonide ordered to help with congestion. Continue with Solu-Medrol 40 mg IV. Patient verbalizes that Robitussin that is not very helpful. Ordered Tessalon pearles for cough. Pulmonary consult has been placed, pending their recommendations. Vital signs T97.9, P 75, R 18, BP 131/84, oxygen 96. Lab WBC 6.2, H13.6, HCT 39.9, sodium 139, potassium 4, BUN , creatinine 0.7 Who was is already REVIEW OF SYSTEMS CONSTITUTIONAL: Complains of fever and chills Denies night sweats. No unintentional weight loss reported. NEUROLOGICAL: Complaints of generalized weakness and fatigue Denies headache, amaurosis fugax, , sensory deficit, vertigo/spinning sensation, gait abnormalities, or tremors. ENT: No hearing loss, otalgia, otorrhea, rhinitis, rhinorrhea, hoarseness, or sore throat. CARDIOVASCULAR: Denies any exertional angina, dyspnea on exertion, orthopnea, paroxysmal nocturnal dyspnea, palpitations, life-threatening arrhythmias, claudication. PULMONARY: Complaints of shortness of breaths with cough Denies hemoptysis, pleuritic chest pain. SLEEP: Complains of unable to sleep due to persistent cough Denies morning headaches, daytime somnolence or napping. Denies waking from sleep. Denies knowledge of snoring. GASTROINTESTINAL: Denies any type of dysphagia to either liquids or solids. Denies nausea, vomiting, pyrosis, early satiety, abdominal pain, diarrhea, constipation, or changes in stool consistency or caliber. Denies coffee-ground emesis, hematemesis, hematochezia, or melanotic stools. GENITOURINARY: Denies frequency, urgency, nocturia, hematuria or incontinence (Storage/Irritative symptoms.) Low urinary stream, straining to void, urinary intermittency or hesitancy, splitting of the voiding stream, terminal dribbling. ENDOCRINOLOGIC: Denies polyuria, polydipsia, polyphagia or heat/cold intolerances. HEMATOLOGIC: Denies thrombophilia/previous clots, or coagulopathy/bleeding disorders. ONCOLOGIC: Denies personal history of malignancy. DERMATOLOGIC: Denies rashes or pruritus. PSYCHIATRIC: Denies any suicidal or homicidal ideation. Denies hallucinations. PHYSICAL EXAM GENERAL APPEARANCE: The patient is awake, alert, and oriented. NEUROLOGICAL: Cranial nerves II-XII grossly intact. Motor is 5/5 in bilateral upper and lower extremities proximal to distal. No sensory deficits. HEENT: Face is symmetric. Pupils are equal and reactive. Extraocular movements are intact. NECK: Supple. No JVD. No thyromegaly. No submental, submandibular, pre- /postauricular, occipital or supraclavicular lymphadenopathy. CHEST: Normal chest expansion. No Telemetry. LUNGS: Scattered rhonchi on bilateral lung kinney per auscultation Absence of any rales and any wheezing. CARDIOVASCULAR: Regular. S1 and S2 normal. No appreciable rubs, murmurs or gallops. ABDOMEN: Soft, nontender, and nondistended. There is no rebound, voluntary guarding, or rigidity. : Deferred. No Pacheco. EXTREMITIES: Non-edematous and not cyanotic. No clubbing. Good capillary refill. SKIN: No skin breakdown. Vital Signs (last 8hr) Date Time Temp Pulse Resp B/P (MAP) Pulse Ox O2 Delivery O2 Flow Rate FiO2 01/03/25 11:51 98.1 75 18 111/64 99 Nasal Cannula 2.0 01/03/25 10:59 75 18 01/03/25 07:46 97.9 75 18 131/84 96 Nasal Cannula 2.0 01/03/25 07:28 85 18 N/Cannula Low lpm 2.0 28 01/03/25 06:53 83 18 LABS: Laboratory: Test 01/03/25 05:04 01/03/25 04:43 01/02/25 23:13 01/02/25 18:10 Range/Units Whole Blood Glucose 146 H 70-110 MG/DL White Blood Count 6.2 4.8-10.8 K/uL Red Blood Count 4.64 4.00-5.50 MIL/uL Hemoglobin 13.6 12.0-16.0 g/dL Hematocrit 39.9 36-48 % Mean Corpuscular Volume 86.0 79-99 fL Mean Corpuscular Hemoglobin 29.3 27.0-33.0 pg Mean Corpuscular Hemoglobin Concent 34.1 32.0-36.0 g/dL Red Cell Distribution Width 13.0 11.0-15.5 % Platelet Count 254 130-400 K/uL Mean Platelet Volume 9.4 7.5-10.5 fL Immature Granulocyte % (Auto) 0.3 0-1 % Neutrophils (%) (Auto) 87.9 H 40.0-77.0 % Lymphocytes (%) (Auto) 10.0 L 21.0-51.0 % Monocytes (%) (Auto) 1.6 L 3.0-13.0 % Eosinophils (%) (Auto) 0.0 0.0-8.0 % Basophils (%) (Auto) 0.2 0.0-5.0 % Neutrophils # (Auto) 5.5 1.8-7.7 K/uL Lymphocytes # (Auto) 0.6 L 1.0-4.8 K/uL Monocytes # (Auto) 0.1 0.1-1.0 K/uL Eosinophils # (Auto) 0.00 0.00-0.70 K/uL Basophils # (Auto) 0.01 0.00-0.20 K/uL Absolute Immature Granulocyte (auto 0.02 0-1 K/uL Nucleated Red Blood Cells 0.0 0.0-0.19 % Sodium Level 139 136-145 mmol/L Potassium Level 4.0 3.5-5.1 mmol/L Chloride Level 106 101-111 mmol/L Carbon Dioxide Level 22 21-32 mmol/L Blood Urea Nitrogen 12 7-18 mg/dL Creatinine 0.7 0.5-1.0 mg/dL Glomerular Filtration Rate Calc 111 >90 mL/min Random Glucose 169 #H 70-105 mg/dL Lactic Acid Level 1.7 0.8-2.5 mmol/L Total Calcium 8.6 8.5-10.1 mg/dL Magnesium Level 1.90 1.80-2.40 mg/dL Total Bilirubin 0.2 # 0.2-1.0 mg/dL Aspartate Amino Transf (AST/SGOT) 12 10-37 U/L Alanine Aminotransferase (ALT/SGPT) 15 12-78 U/L Alkaline Phosphatase 112 50-136 U/L Total Protein 7.4 6.0-8.3 g/dL Albumin 3.4 L 3.5-5.0 g/dL Blood Gas Specimen Type Arterial Arterial Blood pH 7.358 7.350-7.450 Arterial Blood Partial Pressure CO2 34 32-45 mmHg Arterial Blood Partial Pressure O2 100.6 83.0-108.0 mmHg Arterial Blood HCO3 18.6 L 21.0-28.0 mmol/L Arterial Blood Oxygen Saturation 97.4 94.0-98.0 % Arterial Blood Base Excess -5.9 L -2.0-3.0 mmol/L Hemoglobin (Blood Gas) 15.0 12.0-16.0 g/dL Sodium (Blood Gas) 137 136-145 MMOL/L Bedside Potassium (Blood Gas) 4.2 3.4-4.5 MMOL/L Bedside Chloride (Blood Gas) 107 98-107 MMOL/L Bedside Glucose (Blood Gas) 197 H 65-95 MG/DL Bedside Ionized Calcium (Blood Gas) 1.19 1.15-1.33 MMOL/L Bedside Lactic Acid (Blood Gas) 3.05 *H 0.36-0.75 MMOL/L Blood Gas Temperature 37.0 35.5-37.0 CELSIUS Blood Gas Flow-by 2.00 0.00-15.00 L/min Blood Gas Vent Mode RR 2LNC ROOM AIR FiO2 28.0 % Blood Gas Specimen Comment MILAN NURSE Influenza Type A Antigen Negative For Type A NEGATIVE Influenza Type B Antigen Negative For Type B NEGATIVE SARS-CoV-2 Antigen (Rapid) PRESUMPTIVE NEGATIVE NEGATIVE Test 01/02/25 17:52 Range/Units White Cell Morphology Comment See comments D-Dimer Quantitative (PE/DVT) 331 0-500 ng/mL Direct Bilirubin < 0.1 0.0-0.3 mg/dL Troponin I High Sensitivity < 4 L 4-50 ng/L B-Type Natriuretic Peptide 8 0-100 pg/mL Current Medications Medications (Trade) Dose Ordered Sig/Malika Route PRN Reason Start Time Stop Time Status Last Admin Dose Admin Acetaminophen (TYLenol 325MG TAB) 650 mg Q4H PRN PO MILD PAIN (1-3) 01/02/25 20:30 02/01/25 20:29 01/03/25 09:43 650 MG Acetaminophen (TYLenol 325MG TAB) 650 mg Q6H PRN PO TEMPERATURE GREATER THAN 101.5 01/02/25 20:30 02/01/25 20:29 Albuterol (DUOneb) 1 UDVIAL [id number] IH 01/03/25 12:00 02/02/25 11:59 Albuterol (DUOneb) 1 udvial [id number] IH 01/02/25 22:00 01/03/25 12:06 DC 01/03/25 10:59 1 UDVIAL Benzonatate (Tessalon 100mg Caps) 100 mg Q8H PRN PO COUGH 01/03/25 02:30 02/02/25 02:29 01/03/25 02:16 100 MG Budesonide (Pulmicort 0.5 Mg/2ml) 0.5 mg BIDRESP IH 01/03/25 18:00 02/02/25 17:59 Famotidine (Pepcid 20mg Vial) 20 mg BID IV 01/02/25 21:00 02/01/25 20:59 01/03/25 09:43 20 MG Gabapentin (NEURontin 300 MG CAP) 300 mg TID PO 01/03/25 09:00 02/02/25 08:59 01/03/25 09:43 300 MG Guaifenesin/ Dextromethorphan (RobiTUSSin DM 200/20MG 10ML) 10 ml Q6H PRN PO COUGH 01/03/25 00:00 02/02/25 00:00 01/03/25 06:26 10 ML Levofloxacin/ Dextrose 100 ml @ 100 mls/hr Q24H IV 01/02/25 20:30 01/12/25 20:29 01/02/25 20:33 100 MLS/HR Methylprednisolone Sodium Succinate (Solu-medROL 40MG) 40 mg BID IVP 01/02/25 21:00 02/01/25 20:59 01/03/25 09:43 40 MG Mirtazapine (REMeron 15 MG TAB) 30 mg HS PO 01/03/25 21:00 02/02/25 20:59 Ondansetron HCl (zoFRAN 4MG INJ) 4 mg Q6H PRN IV NAUSEA/VOMITING 01/02/25 20:30 02/01/25 20:29 DIAGNOSTICS / RADIOLOGY: PATIENT: NICHOLE CERDA MR#: [id number] : 1985 SEX: F AGE: 39 LOCATION: [facility] ORDER 50 STATUS: REG ER REPORT#: [id number] SERVICE 1201 REASON: sob ORDERING PHYSICIAN: DOUG EDGE MD PROCEDURE: CXR1VW - CHEST 1VW Exam Type: CHEST 1VW Clinical Information: sob Comparison: None Findings: The lungs are clear of infiltrates. The heart is normal in size. The bony and soft tissue structures of the chest are unremarkable. Impression: Clear lungs. DICTATED BY: YOSI HARPER MD DATE: 01/02/251857 ELECTRONICALLY SIGNED BY: YOSI HARPER MD DATE: 01/02/251901 ASSESSMENT: Acute cough with shortness of breaths POA Chronic obstructive pulmonary disease exacerbation POA Reactive airway disease with acute exacerbation POA PLAN: *Albuterol/ipratropium neb treatment, Budesonide ordered to help with congest ion. *Continue with Solu-Medrol 40 mg IV. *Patient verbalizes that Robitussin is not very helpful. Ordered Tessalon perles for cough. *Urinalysis to rule out any urinary tract infection.Pulmonary consult has been placed, pending their recommendations. We will start on Famotidine 20 mg IV bid for GI prophylaxis We will replace electrolytes as needed per protocol Continue oxygen supplementation to keep saturation above 92% DuoNeb treatment q.4 hours for shortness of breaths and cough We will obtain respiratory culture We will add prn medication for fever,pain,cough , nausea and vomiting We will reconcile home meds once medlist available We will seek pulmonology consultation We will request labs in am Further orders to follow depending on above results Case discussed with attending physician and came up with above treatment and plan of care. ATTESTATION BY PHYSICIAN I have seen and examined the patient. I reviewed the documentation, medical decision making, and treatment plan as noted by the resident provider above. I agree with the findings and plan of care. Jose Martin Alvarado MD OBI,ESME Ocampo MD January 03, 2025 12:32
[2025-01-03] MEDS ORDERED: BENZONATATE 100 MG CAPSULE PO PRN (13:00)
--- NOTE | 2025-01-03 14:04 | CONS ---
[facility] CONSULTATION NOTE Date Patient Seen: January 03, 2025 Time of Visit: 1224 Supervising Physician: Dr. Harris Reason for Consultation: Shortness of breadth Inpatient Consults: bis PROBLEM LIST: Acute COPD exacerbation History of polysubstance drug abuse History of vaping quit one year ago HPI: This is a 39-year-old with past medical history of anxiety disorder PTSD and Chronic obstructive pulmonary disease who presents to the ED for complaints of persistent cough with shortness of breath associated with subjective fever ,chills and tiredness.Patient reports she started having cough last Friday and becoming worse that she is unable to sleep at night and her coughing episode triggers shortness of breath and she started feeling tired and fatigued last Friday and today she started having subjective fever and chills and started having upper abdominal soreness due to her persistent coughing episode she said.Patient reports her primary doctor did a test and she was told she has COPD and patient reports she used to smoke and use recreational drugs but quits last February 2023.Patient reports hsamanda was admitted here in this facility last October and was discharged home and she was doing fine at home until last Friday.Patient denies sick contact,recent travel was to [facility] and 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 Seen and examined patient in the ER on Oxygen supplementation,awake,alert and coherent,appears short of breath with persistent cough.Patient reports having productive thick white phlegm. Patient denies chest pain, palpitation, nausea, vomiting, sore throat and diarrhea Vital signs temperature 98.2, heart rate 74, blood pressure 114/73 saturation 97% on 2 L nasal cannula. Labs: Monocytes 15 the rest of the CBC is normal. Chemistries normal. Influenza type a and B negative COVID negative. Chest x-ray result is normal. While in the ER patient received DuoNeb treatment, Solu-Medrol 125 mg IV. We will admit patient for further medical management. Patient was seen and examined at bedside with no family present. Patient is awake alert able to answer simple questions appropriately. Patient denies any chest pain or any shortness breadth at this time. Patient does report dry cough. That causes her to have episodes of shortness of breadth. Patient denies any nausea vomiting or abdominal pain. Patient currently on room air is tolerating well. Patient noted to have no wheezing. Pulmonology were consulted for shortness of breadth. Thank you for allowing us to participate in the care of this patient we will continue to monitor while patient is in the hospital. We will start patient on breathing treatments and budesonide b.i.d.. We will swab for strep. We will start patient on Tessalon Perles 200 mg t.i.d.. We wi ll order PFTs. And continue to monitor closely. Patient's chest x-ray unremarkable. Patient's ABGs unremarkable. Patient was negative for COVID and flu. PAST MEDICAL HX: see above PAST SURGICAL HX: noncontributory SOCIAL HISTORY: No tobacco, ETOH, or illicit drug use Coded Allergies: No Known Drug Allergies (Unverified Allergy, Unknown, 08/01/19) REVIEW OF SYSTEMS: 12 point ROS reviewed with patient. Pertinent positives mentioned above. Otherwise negative. PHYSICAL EXAM: GENERAL: alert, weak, awake oriented x 3 HEENT: EOMI, Sclera non icteric, moist mucosa NECK: Supple, no JVD, trachea midline LUNGS: Clear breath sounds bilaterally. No wheezes HEART: Regular rate and rhythm. Normal S1 and S2, without murmurs ABD: Abdomen soft, nontender. Bowel sounds present EXT: No clubbing cyanosis or edema NEURO: Alert and oriented to person, follows commands Vital Signs (last 8hr) Date Time Temp Pulse Resp B/P (MAP) Pulse Ox O2 Delivery O2 Flow Rate FiO2 01/03/25 11:51 98.1 75 18 111/64 99 Nasal Cannula 2.0 01/03/25 10:59 75 18 01/03/25 07:46 97.9 75 18 131/84 96 Nasal Cannula 2.0 01/03/25 07:28 85 18 N/Cannula Low lpm 2.0 28 01/03/25 06:53 83 18 LABS: Hematology Labs: Test 01/03/25 04:43 01/02/25 17:52 Range/Units White Blood Count 6.2 4.8-10.8 K/uL Red Blood Count 4.64 4.00-5.50 MIL/uL Hemoglobin 13.6 12.0-16.0 g/dL Hematocrit 39.9 36-48 % Mean Corpuscular Volume 86.0 79-99 fL Mean Corpuscular Hemoglobin 29.3 27.0-33.0 pg Mean Corpuscular Hemoglobin Concent 34.1 32.0-36.0 g/dL Red Cell Distribution Width 13.0 11.0-15.5 % Platelet Count 254 130-400 K/uL Mean Platelet Volume 9.4 7.5-10.5 fL Immature Granulocyte % (Auto) 0.3 0-1 % Neutrophils (%) (Auto) 87.9 H 40.0-77.0 % Lymphocytes (%) (Auto) 10.0 L 21.0-51.0 % Monocytes (%) (Auto) 1.6 L 3.0-13.0 % Eosinophils (%) (Auto) 0.0 0.0-8.0 % Basophils (%) (Auto) 0.2 0.0-5.0 % Neutrophils # (Auto) 5.5 1.8-7.7 K/uL Lymphocytes # (Auto) 0.6 L 1.0-4.8 K/uL Monocytes # (Auto) 0.1 0.1-1.0 K/uL Eosinophils # (Auto) 0.00 0.00-0.70 K/uL Basophils # (Auto) 0.01 0.00-0.20 K/uL Absolute Immature Granulocyte (auto 0.02 0-1 K/uL Nucleated Red Blood Cells 0.0 0.0-0.19 % White Cell Morphology Comment See comments Chemistry Labs: Test 01/03/25 05:04 01/03/25 04:43 01/02/25 17:52 Range/Units Whole Blood Glucose 146 H 70-110 MG/DL Sodium Level 139 136-145 mmol/L Potassium Level 4.0 3.5-5.1 mmol/L Chloride Level 106 101-111 mmol/L Carbon Dioxide Level 22 21-32 mmol/L Blood Urea Nitrogen 12 7-18 mg/dL Creatinine 0.7 0.5-1.0 mg/dL Glomerular Filtration Rate Calc 111 >90 mL/min Random Glucose 169 #H 70-105 mg/dL Lactic Acid Level 1.7 0.8-2.5 mmol/L Total Calcium 8.6 8.5-10.1 mg/dL Magnesium Level 1.90 1.80-2.40 mg/dL Total Bilirubin 0.2 # 0.2-1.0 mg/dL Aspartate Amino Transf (AST/SGOT) 12 10-37 U/L Alanine Aminotransferase (ALT/SGPT) 15 12-78 U/L Alkaline Phosphatase 112 50-136 U/L Total Protein 7.4 6.0-8.3 g/dL Albumin 3.4 L 3.5-5.0 g/dL Direct Bilirubin < 0.1 0.0-0.3 mg/dL Troponin I High Sensitivity < 4 L 4-50 ng/L B-Type Natriuretic Peptide 8 0-100 pg/mL Coagulation Labs: Test 01/02/25 17:52 Range/Units D-Dimer Quantitative (PE/DVT) 331 0-500 ng/mL DIAGNOSTICS / RADIOLOGY RESULTS: na PLAN Follow up with PFTs Follow up with strep swab Continue Tessalon 200 mg t.i.d. Continue breathing treatments Continue Solu-Medrol 40 b.i.d. Patient will require 6 minute walk prior to discharge Patient will need a follow up with Dr. Harris maintenance assistant within 3-5 days upon discharge Continue FiO2 as needed Dispo per primary team NEURO: Minimize central acting medications as possible. Maintain fall precautions, adequate lighting during the day PULMONARY: Supplemental 02 as needed. Maintain aspiration precautions at all times CARDIOVASCULAR: Follow hemodynamics. Vital signs per facility protocol GI & NUTRITION: Continue with nutritional support. Continue stool softeners and laxatives as needed. KIDNEYS & ELECTROLYTES: Strict monitoring of intake, output and overall fluid balance. Avoid nephrotoxic medications to the extent possible. Medications to be dosed according to renal function. Monitor electrolytes and replace as needed ENDOCRINE: Maintain blood glucose between 100-180 at all times. Hypoglycemia protocol in place INFECTIOUS DISEASE: Trend temperature, WBC and procalcitonin level Follow cultures, deescalate antibiotics as soon as possible. Panculture if new onset fever ONCOLOGY/HEMATOLOGY/COAGULATION: Monitor for s/s of bleeding Monitor hemoglobin, coagulation studies as needed SKIN: Pressure ulcer prevention per facility protocol Specialty mattress ORTHO/REHAB: Continue PT/OT Prophylaxis: Continue GI and DVT prophylaxis Code Status: Full Resuscitation Disposition: Per primary team Other: Case discussed with supervising physician plan of care agreed upon LILIAN SESAY January 03, 2025 14:04
[2025-01-03] MEDS: BUDESONIDE 0.5 MG/2 ML INH IH SCH (17:04)
[2025-01-03] MEDS: BUDESONIDE 0.5 MG/2 ML INH IH ONE (17:04)
[2025-01-03] MEDS: BENZONATATE 100 MG CAPSULE PO SCH (17:40)
[2025-01-03] MEDS ORDERED: IpraTROPium/alBUTERol SULFATE 3 ML SOLUTION IH SCH (18:00)
[2025-01-03] MEDS: mirtAZAPine 15 MG TABLET PO SCH (20:10)
[2025-01-04 04:00] VITALS: BP 117/67; PULSE 77; RESP 20; TEMP 97.9
[2025-01-04 06:39] VITALS: PULSE 79; RESP 18
[2025-01-04 06:48] LABS: BASOPHILS # (AUTO) 0.01 K/uL (0.00-0.20); BASOPHILS % (AUTO) 0.1 % (0.0-5.0); EOSINOPHILS # (AUTO) 0.01 K/uL (0.00-0.70); EOSINOPHILS % (AUTO) 0.1 % (0.0-8.0); HEMATOCRIT 39.1 % (36-48); IMMATURE GRANULOCYTE ABSOLUTE 0.05 K/uL (0-1); LYMPHOCYTES # (AUTO) 1.1 K/uL (1.0-4.8); LYMPHOCYTES % (AUTO) 8.4 % (21.0-51.0); MEAN CORPUSCULAR HEMOGLOBIN 29.3 pg (27.0-33.0); MEAN CORPUSCULAR HGB CONC 33.2 g/dL (32.0-36.0); MEAN CORPUSCULAR VOLUME 88.3 fL (79-99); MONOCYTES # (AUTO) 0.8 K/uL (0.1-1.0); MONOCYTES % (AUTO) 6.2 % (3.0-13.0); NEUTROPHILS # (AUTO) 11.3 K/uL (1.8-7.7); NEUTROPHILS % (AUTO) 84.8 % (40.0-77.0); PLATELET COUNT (AUTO) 243 K/uL (130-400); RED BLOOD CELL COUNT(AUTO) 4.43 MIL/uL (4.00-5.50); RED CELL DISTRIBUTION WIDTH 13.2 % (11.0-15.5); WHITE BLOOD COUNT (AUTO) 13.3 K/uL (4.8-10.8)
[2025-01-04 06:56] VITALS: PULSE 82; RESP 18; O2SAT 96
[2025-01-04 07:03] LABS: ALBUMIN 3.2 g/dL (3.5-5.0); BILIRUBIN,TOTAL 0.1 mg/dL (0.2-1.0); CREATININE 0.6 mg/dL (0.5-1.0); TOTAL PROTEIN, SERUM 6.7 g/dL (6.0-8.3)
[2025-01-04 08:00] VITALS: BP 106/50; PULSE 85; RESP 18; TEMP 98
[2025-01-04 11:21] VITALS: PULSE 83; RESP 18
[2025-01-04] MEDS ORDERED: DOXY-252 PO (11:48)
[2025-01-04] MEDS ORDERED: BUDE0.255 IH (11:48)
[2025-01-04] MEDS ORDERED: PRED20TA3 PO (11:48)
[2025-01-04] MEDS ORDERED: BENZ-39 PO (11:48)
[2025-01-04] MEDS ORDERED: IPRA3AMP24 IH (11:48)
--- NOTE | 2025-01-04 12:00 | DS ---
Discharge Summary Hospital Course Summary: Patient Information: *Name: Ayad Thacker *Date of :[birth year] *Admission Date: 01/02/2025 *Discharge Date: 01/04/2025 Attending Physician:Dr Alvarado Admitting Diagnosis: Acute cough with SOB, COPD exacerbation Course in Hospital: This is a 39-year-old with past medical history of anxiety disorder PTSD and Chronic obstructive pulmonary disease who presented to the ED with complaints of persistent cough with shortness of breath . Patient reports she started having cough last Friday and becoming worse that she is unable to sleep at night and her coughing episode triggers shortness of breath, for this she decided to come to the ED for evaluation. Chest xray and labs done in the ED were unremarkable. Patient was started on Albuterol -ipratropim Neb treatment, Solumedrol 40mg IV daily and Tessalon pearles 200mg tid for the cough. Over the course of her hospitalization, her symptoms improved significantly. Patient had less coughing episodes and no shortness of breath . Patient was discharged with Prednisone 40mg daily x 5days. Taper by 10mg. Tessalon pearles 20mg tid for coug, DuoNeb q6h, Budesonide 0-25mg bid, Doxycycline 100mg bid and instructions to follow up with pulmonology for further evaluation and management. Procedures performed: Pulmonary Function Test Medications on Discharge: Prednisone 40mg daily x5 days, Tessalon perles 200mg tid, Duo Neb, q6h, Budesonide 0.25mg bid, Doxycycline 100mg bid Discharge Instructions: *Follow up with your primary care physician in 2 - 3 days after discharge. *Continue all medications as prescribed. Do not discontinue or change dosages without consulting your PCP. *Gradually resume normal activities as tolerated. *Continue a balanced diet . Reduce salt intake to help manage BP. *Seek immediate medical attention if you experience chest pain, SOB or severe headache. *Smoking cessation is strongly advised. Resources for quitting smoking are available upon request. Discharged to: Home Condition on Discharge: Stable Client Strategist(s): Pulmonary Procedure(s): Pulmonary Function Test Assessment/Plan: ASSESSMENT: Acute cough with shortness of breaths POA Chronic obstructive pulmonary disease exacerbation POA Reactive airway disease with acute exacerbation POA PLAN: *Albuterol/ipratropium neb treatment, Budesonide ordered to help with congestion. *Continue with Solu-Medrol 40 mg IV. *Patient verbalizes that Robitussin is not very helpful. Ordered Tessalon perles for cough. *Urinalysis to rule out any urinary tract infection.Pulmonary consult has been placed, pending their recommendations. We will start on Famotidine 20 mg IV bid for GI prophylaxis We will replace electrolytes as needed per protocol Continue oxygen supplementation to keep saturation above 92% DuoNeb treatment q.4 hours for shortness of breaths and cough We will obtain respiratory culture We will add prn medication for fever,pain,cough , nausea and vomiting We will reconcile home meds once medlist available We will seek pulmonology consultation We will request labs in am Further orders to follow depending on above results Case discussed with attending physician and came up with above treatment and plan of care. Discharge Instructions: Discharge Instructions: *Follow up with your primary care physician in 2 - 3 days after discharge. *Continue all medications as prescribed. Do not discontinue or change dosages without consulting your PCP. *Gradually resume normal activities as tolerated. *Continue a balanced diet . Reduce salt intake to help manage BP. *Seek immediate medical attention if you experience chest pain, SOB or severe headache. *Smoking cessation is strongly advised. Resources for quitting smoking are available upon request. Home Medications: Reported Medications Gabapentin (Neurontin) 300 Mg Capsule, 1 CAP PO TID for 30 Days, #90 CAP 0 Re fills 01/02/25 Mirtazapine (Mirtazapine) 30 Mg Tablet, 1 TAB PO HS for 30 Days, #30 TAB 0 Refills 01/02/25 Time spent arranging discharge: 31-60 minutes ATTESTATION BY PHYSICIAN I have seen and examined the patient. I reviewed the documentation, medical decision making, and treatment plan as noted by the resident provider above. I agree with the findings and plan of care. Jose Martin Alvarado MD OBI,ESME Ocampo MD January 04, 2025 12:00
[2025-01-04 12:01] VITALS: BP 134/68; PULSE 60; RESP 19; TEMP 98
--- NOTE | 2025-01-04 13:49 | PN ---
[facility] PROGRESS NOTE Date Patient Seen: January 04, 2025 Time of Visit: 13:49 Supervising Physician: [Dr. Patel] Inpatient Consults: bis PROBLEM LIST: Acute COPD exacerbation, resolved History of polysubstance drug abuse History of vaping quit one year ago INTERVAL HISTORY: [Patient is evaluated at bedside. She has returned to baseline regarding respiratory status. Does have a mild, non-productive cough at bedside triggered with deep inspiration but is otherwise in no acute respiratory distress, saturating well on room air. She was preparing for discharge at the time of my visit, advised to follow up with pulmonology outpatient for evaluation of full PFT's and further management. She verbalized agreement.] REVIEW OF SYSTEMS: 12 point ROS reviewed with patient. Pertinent positives mentioned above. Otherwise negative. PHYSICAL EXAM: GENERAL: alert, weak, awake oriented x 3 HEENT: EOMI, Sclera non icteric, moist mucosa NECK: Supple, no JVD, trachea midline LUNGS: Clear breath sounds bilaterally. No wheezes HEART: Regular rate and rhythm. Normal S1 and S2, without murmurs ABD: Abdomen soft, nontender. Bowel sounds present EXT: No clubbing cyanosis or edema NEURO: Alert and oriented to person, follows commands Vital Signs (last 8hr) Date Time Temp Pulse Resp B/P (MAP) Pulse Ox O2 Delivery O2 Flow Rate FiO2 01/04/25 12:01 98.1 60 19 134/68 96 Room Air 01/04/25 11:21 83 18 01/04/25 08:00 98.1 85 18 106/50 93 Room Air 01/04/25 06:56 82 18 N/A Room Air 21 01/04/25 06:39 79 18 LABS: Hematology Labs: Test 01/04/25 06:35 01/02/25 17:52 Range/Units White Blood Count 13.3 H 4.8-10.8 K/uL Red Blood Count 4.43 4.00-5.50 MIL/uL Hemoglobin 13.0 12.0-16.0 g/dL Hematocrit 39.1 36-48 % Mean Corpuscular Volume 88.3 79-99 fL Mean Corpuscular Hemoglobin 29.3 27.0-33.0 pg Mean Corpuscular Hemoglobin Concent 33.2 32.0-36.0 g/dL Red Cell Distribution Width 13.2 11.0-15.5 % Platelet Count 243 130-400 K/uL Mean Platelet Volume 9.2 7.5-10.5 fL Immature Granulocyte % (Auto) 0.4 0-1 % Neutrophils (%) (Auto) 84.8 H 40.0-77.0 % Lymphocytes (%) (Auto) 8.4 L 21.0-51.0 % Monocytes (%) (Auto) 6.2 3.0-13.0 % Eosinophils (%) (Auto) 0.1 0.0-8.0 % Basophils (%) (Auto) 0.1 0.0-5.0 % Neutrophils # (Auto) 11.3 H 1.8-7.7 K/uL Lymphocytes # (Auto) 1.1 1.0-4.8 K/uL Monocytes # (Auto) 0.8 0.1-1.0 K/uL Eosinophils # (Auto) 0.01 0.00-0.70 K/uL Basophils # (Auto) 0.01 0.00-0.20 K/uL Absolute Immature Granulocyte (auto 0.05 0-1 K/uL Nucleated Red Blood Cells 0.0 0.0-0.19 % White Cell Morphology Comment See comments Chemistry Labs: Test 01/04/25 06:35 01/03/25 05:04 01/03/25 04:43 01/02/25 17:52 Range/Units Sodium Level 143 136-145 mmol/L Potassium Level 4.0 3.5-5.1 mmol/L Chloride Level 109 101-111 mmol/L Carbon Dioxide Level 25 21-32 mmol/L Blood Urea Nitrogen 13 7-18 mg/dL Creatinine 0.6 0.5-1.0 mg/dL Glomerular Filtration Rate Calc 116 >90 mL/min Random Glucose 128 H 70-105 mg/dL Total Calcium 8.5 8.5-10.1 mg/dL Magnesium Level 2.00 1.80-2.40 mg/dL Total Bilirubin 0.1 L 0.2-1.0 mg/dL Aspartate Amino Transf (AST/SGOT) 10 10-37 U/L Alanine Aminotransferase (ALT/SGPT) 18 12-78 U/L Alkaline Phosphatase 104 50-136 U/L Total Protein 6.7 6.0-8.3 g/dL Albumin 3.2 L 3.5-5.0 g/dL Whole Blood Glucose 146 H 70-110 MG/DL Lactic Acid Level 1.7 0.8-2.5 mmol/L Direct Bilirubin < 0.1 0.0-0.3 mg/dL Troponin I High Sensitivity < 4 L 4-50 ng/L B-Type Natriuretic Peptide 8 0-100 pg/mL Coagulation Labs: Test 01/02/25 17:52 Range/Units D-Dimer Quantitative (PE/DVT) 331 0-500 ng/mL DIAGNOSTICS / RADIOLOGY RESULTS: [ ] PLAN Follow up with PFTs Patient will need a follow up with Dr. Harris dairy lab technician within 3-5 days upon discharge Dispo per primary team NEURO: Minimize central acting medications as possible. Maintain fall precautions, adequate lighting during the day PULMONARY: Supplemental 02 as needed. Maintain aspiration precautions at all times CARDIOVASCULAR: Follow hemodynamics. Vital signs per facility protocol GI & NUTRITION: Continue with nutritional support. Continue stool softeners and laxatives as needed. KIDNEYS & ELECTROLYTES: Strict monitoring of intake, output and overall fluid balance. Avoid nephrotoxic medications to the extent possible. Medications to be dosed according to renal function. Monitor electrolytes and replace as needed ENDOCRINE: Maintain blood glucose between 100-180 at all times. Hypoglycemia protocol in place INFECTIOUS DISEASE: Trend temperature, WBC and procalcitonin level Follow cultures, deescalate antibiotics as soon as possible. Panculture if new onset fever ONCOLOGY/HEMATOLOGY/COAGULATION: Monitor for s/s of bleeding Monitor hemoglobin, coagulation studies as needed SKIN: Pressure ulcer prevention per facility protocol Specialty mattress ORTHO/REHAB: Continue PT/OT Prophylaxis: Continue GI and DVT prophylaxis Code Status: Full Resuscitation Disposition: Per primary team Other: Case discussed with supervising physician plan of care agreed upon ANA MORIN January 04, 2025 13:49
--- NOTE | 2025-01-06 11:49 | NUR ---
Transitional Phone Call Spoke with patient, states "I'm okay." States has all the new medications except the Pulmicort inhaler because it was too expensive, patient contacted Medicaid since she was previously on it, states the payroll representative stated eligibility is possible; denies questions or concerns with medications. States the follow up appointment with PCP - Dr. Viet Tracey is scheduled for 01/06/2025; the pulmonology - Dr. Harris is scheduled for 01/10/2025 at 0845. Patients concerned with keeping the electricity from being shut off; referred to 211; patient is aware of 211. No further questions or concerns at this time.
== END 2025-01-04 17:20 | disposition home or self-care (01) | DRG 202 ==
LOC: EDH 17:32 → EDHIP 17:33 → 3DH 21:05
PROVIDERS: ADMIT Internal Medicine; ATTEND Internal Medicine
DX: J45.901 Unspecified asthma with (acute) exacerbation (principal); J44.1 Chronic obstructive pulmonary disease with (acute) exacerbation; F43.10 Post-traumatic stress disorder, unspecified; F41.9 Anxiety disorder, unspecified; F17.210 Nicotine dependence, cigarettes, uncomplicated; Z90.710 Acquired absence of both cervix and uterus; Z80.8 Family history of malignant neoplasm of other organs or systems; Z82.49 Family history of ischemic heart disease and other diseases of the circulatory system
CPT/HCPCS: 36415; 36600; 71045; 80048; 80053; 80076; 82435; 82803; 82947; 82948; 83605; 83735; 83880; 84132; 84295; 84484; 85018; 85025; 85378; 87040; 87426; 87804; 87880; 93005; 94010; 94640; 94664; 96374; 99291; G0378; J1956; J2919; J3490